=== PATIENT | female | born 1980 | race Two or more races ===

== ENCOUNTER 2017-05-28 14:58 | Emergency (ER) | payer MEDICAID ==
[~2017-05-28] VITALS: Ht 157.5 cm; Wt 82.0 kg
[2017-05-28] MEDS ORDERED: SODIUM CHLORIDE 0.9% 1,000 ML IV ONE (19:48)
[2017-05-28 20:18] LABS: CHLORIDE 105 mEq/L (98-107)
[2017-05-28 20:20] LABS: BASOPHILS % 0.8 % (0.0-2.0); EOSINOPHILS % 1.4 % (0.0-5.0); HEMOGLOBIN. 11.7 g/dL (12.0-16.0); LYMPHOCYTES % 28.4 % (20.0-50.0); MEAN CORPUSCULAR HEMOGLOBIN 28.5 pg (28.0-32.0); MEAN PLATELET VOLUME 9.1 fl (7.4-10.4); MONOCYTES % 6.2 % (2.0-8.0); NEUTROPHILS % 63.2 % (40.0-76.0); PLATELET 306 x1000/uL (130-400); RED BLOOD CELL COUNT 4.12 mill/uL (4.2-5.4); RED CELL DISTRIBUTION WIDTH 15.6 % (11.6-14.6)
[2017-05-28 20:24] LABS: CARBON DIOXIDE 24 mEq/L (21-32)
[2017-05-28 20:29] LABS: B-HCG QUANTITATIVE 641 mIU/mL (<3)
[2017-05-28 20:35] LABS: CLARITY URINE CLEAR (CLEAR); COLOR URINE YELLOW (YELLOW); KETONES URINE NEGATIVE (NEGATIVE); LEUKOCYTE ESTERASE URINE TRACE (NEGATIVE); NITRITE URINE NEGATIVE (NEGATIVE); OCCULT BLOOD URINE 3+ (NEGATIVE); PROTEIN URINE NEGATIVE (NEGATIVE); SPECIFIC GRAVITY URINE 1.021 (1.005-1.030)
[2017-05-28 22:09] VITALS: BP 96/58
== END 2017-05-28 23:46 | disposition home or self-care (01) ==
LOC: ER 19:51
DX: O03.9 Complete or unspecified spontaneous abortion without complication (principal)
CPT/HCPCS: 36415; 76801; 76817; 80048; 81001; 81025; 84702; 85025; 86850; 86900; 86901; 99285; J7030; Z7610